=== PATIENT | female | born 1955 | race Hispanic/Latino ===

== ENCOUNTER → 2022-04-05 | Day surgery (SDC) | payer MEDICARE ==
[~2022-04-05] MED LIST: ADVAIR 500/501 EA INH; ALBUTEROL0.63 MG/3 NEB; ASPIRIN81 MG PO; BACLOFEN20 MG PO; CALCIUM ACETAT667 M1 PO; CYMBALTA30 MG PO; DONEPEZIL HCL10 MG PO; ENOXAPARIN150 MG/1 M SC; FAMOTIDINE20 MG PO; FENTANYL CITRATE/PF 100MCG/2 ML INJ ONE; GABAPENTIN300 MG PO; IRON PO; LIPITOR10 MG PO; MIDAZOLAM HCL 2 MG/2 ML VIAL ONE; MULTI-VITAMIN1 EACH PO; MYCOPHENOLATE250 MG PO; NAMENDA10 MG PO; OR PHACO EYE KIT ONE; PLAQUENIL200 MG PO; PREOP PHACO EYE KIT ONE; VIT D PO
[2022-04-05 15:10] VITALS: BP 143/94
== END | disposition home or self-care (01) ==
LOC: OR 11:07
PROVIDERS: ATTEND Ophthalmology
DX: H25.11 Age-related nuclear cataract, right eye (principal); I69.354 Hemiplegia and hemiparesis following cerebral infarction affecting left non-dominant side; I10 Essential (primary) hypertension; E66.9 Obesity, unspecified; F03.90 Unspecified dementia, unspecified severity, without behavioral disturbance, psychotic disturbance, mood disturbance, and anxiety; Z88.6 Allergy status to analgesic agent; Z79.82 Long term (current) use of aspirin; Z79.899 Other long term (current) drug therapy; Z68.35 Body mass index [BMI] 35.0-35.9, adult
CPT/HCPCS: 0223U; 36415; 66984; J2250; J3010; V2632

== ENCOUNTER 2024-07-12 10:33 | Emergency (ER) | payer MEDICARE ==
[~2024-07-12] VITALS: Ht 162.6 cm; Wt 88.5 kg
[~2024-07-12 10:33] MED LIST changes: -FENTANYL CITRATE/PF 100MCG/2 ML INJ ONE; -MIDAZOLAM HCL 2 MG/2 ML VIAL ONE; -OR PHACO EYE KIT ONE; -PREOP PHACO EYE KIT ONE
[2024-07-12 10:55] VITALS: TEMP 99.1
[2024-07-12 11:39] LABS: BASOPHILS % 0.5 % (0.0-1.0); HEMATOCRIT 39.2 % (34.2-44.1); HEMOGLOBIN 12.3 g/dL (12.0-16.0); LYMPHOCYTES # (AUTO) 1.9 (1.0-3.2); LYMPHOCYTES % 48.6 % (18.0-39.1); MEAN CORPUSCULAR HEMOGLOBIN 30.4 pg (28-32); MEAN CORPUSCULAR HGB CONC 31.4 g/dL (31-35); MONOCYTES # (AUTO) 0.7 (0.2-0.8); MONOCYTES % 18.8 % (4.4-11.3); NEUTROPHILS # (AUTO) 1.2 (2.1-6.9); NEUTROPHILS % 30.6 % (38.7-80.0); PLATELET COUNT 251 x10e3/uL (140-360); RED BLOOD COUNT 4.04 x10e6/uL (3.6-5.1); RED CELL DISTRIBUTION WIDTH 12.4 % (11.7-14.4); WHITE BLOOD COUNT 3.83 x10e3/uL (4.8-10.8)
[2024-07-12 11:46] LABS: INR 0.91; PROTHROMBIN TIME 12.7 seconds (11.9-14.5)
[2024-07-12 11:47] LABS: PARTIAL THROMBOPLASTIN TIME 29.9 seconds (23.8-35.5)
[2024-07-12 11:54] LABS: ALANINE AMINOTRANSFERASE 30 IU/L (0-55); ALBUMIN 3.7 g/dL (3.5-5.0); ALBUMIN/GLOBULIN RATIO 1.2 (0.8-2.0); ALKALINE PHOSPHATASE 104 IU/L (40-150); BILIRUBIN,TOTAL 0.7 mg/dL (0.2-1.2); BLOOD UREA NITROGEN 13 mg/dL (7-26); BUN/CREATININE RATIO 18 (6-25); CALCIUM 9.4 mg/dL (8.4-10.2); CARBON DIOXIDE 29 mmol/L (22-29); CHLORIDE 104 mmol/L (98-107); CREATINE KINASE 70 IU/L (29-168); CREATININE, SERUM 0.72 mg/dL (0.57-1.11); EST GLOMERULAR FILTRATION RATE 92 ML/MIN (>=60); GLUCOSE 115 mg/dL (74-118); MAGNESIUM 1.9 MG/DL (1.3-2.1); SODIUM 141 mmol/L (136-145); TOTAL PROTEIN 6.9 g/dL (6.5-8.1)
[2024-07-12 12:06] LABS: TROPONIN I < 0.001 ng/mL (0-0.300)
[2024-07-12] MEDS: SODIUM CHLORIDE 0.9% 500ML 500 ML IV ONE (12:06)
[2024-07-12 13:40] VITALS: PULSE 64; RESP 16
[2024-07-12] MEDS ORDERED: IOPAMIDOL 370 MG/ML 100 ML INFUS..BTL INJ ONE (13:48)
[2024-07-12 15:35] LABS: CREATINE KINASE 69 IU/L (29-168)
[2024-07-12 15:42] LABS: TROPONIN I < 0.001 ng/mL (0-0.300)
[2024-07-12] MEDS ORDERED: MEDROL4 M2 PO (16:06)
[2024-07-12 16:25] VITALS: BP 137/77; PULSE 72; RESP 17; O2SAT 100
== END 2024-07-12 16:27 | disposition home or self-care (01) ==
LOC: ER 10:40
DX: R06.02 Shortness of breath (principal); R07.89 Other chest pain; M32.9 Systemic lupus erythematosus, unspecified; Z86.73 Personal history of transient ischemic attack (TIA), and cerebral infarction without residual deficits; Z86.711 Personal history of pulmonary embolism
CPT/HCPCS: 36415; 71045; 71260; 80053; 82550; 83735; 83880; 84484; 85025; 85379; 85610; 85730; 93005; 93306; 99284; J7040; Q9967